=== PATIENT | female | born 1940 | race Caucasian/White ===

== ENCOUNTER 2024-02-26 23:00 | Observation (INO) ==
[2024-02-26 23:30] LABS: ABS Basophils 0.2 10^3/uL (0.0-0.1); ABS Eosinophils 0.2 10^3/uL (0.0-0.5); ABS Lymphocytes 1.8 10^3/uL (1.0-4.8); ABS Monocytes 0.3 10^3/uL (0.0-0.9); ABS Neutrophils 5.2 10^3/uL (1.5-7.6); ABS Nucleated RBC 0.01 10^3/ul; Eosinophil % 2.1 %; Hematocrit 39.2 % (35-45); Hemoglobin 13.6 g/dL (11.5-14.3); Lymphocyte % 23.2 %; Mean Corpuscular Hemoglobin 32.4 pg (27-33); Mean Corpuscular Hgb Conc 34.6 g/dL (31-36); Mean Corpuscular Volume 93.7 fL (80-97); Mean Platelet Volume 9.2 fL (7.5-11.2); Nucleated Red Blood Cells % 0.1 %/100WBC (0.0-0.8); Platelet Count 231 10^3/uL (150-450); Red Blood Count 4.19 10^6/uL (3.63-4.92); Red Cell Distribution Width 12.8 % (12-17); White Blood Count 7.7 10^3/uL (3.8-11.8)
[2024-02-26 23:42] LABS: INR 1.04 (0.85-1.14)
[2024-02-26 23:55] LABS: High Sens Troponin Baseline 61 pg/mL (<15)
[2024-02-27 00:48] LABS: ALT 26 U/L (7-52); Albumin 4.6 g/dL (3.5-5.7); Albumin/Globulin Ratio 1.8 (1-3); Alkaline Phosphatase 76 U/L (35-149); Anion Gap 6 mmol/L (2-16); Blood Urea Nitrogen 27 mg/dL (6-24); CO2 Carbon Dioxide 31 mmol/L (22-32); Calcium 10.1 mg/dL (8.6-10.3); Chloride 100 mmol/L (101-111); Creatinine, Serum 0.92 mg/dL (0.51-0.95); Globulin 2.5 g/dL (2-4); Glucose 132 mg/dL (70-100); Sodium 137 mmol/L (135-145); Total Bilirubin 0.8 mg/dL (0.2-1.0); Total Protein 7.1 g/dL (6.4-8.9); eGFR CKD-EPI 62.2 (>60)
[2024-02-27 02:10] LABS: Cholesterol 298 mg/dL; HDL Cholesterol 59.6 mg/dL; LDL Cholesterol 159 mg/dL; Triglycerides 396 mg/dL
[2024-02-27] MEDS: Heparin 5000 UNITS/ML 1 mL VIAL IV SCH (02:20)
[2024-02-27] MEDS: Heparin DRIP 25,000 UNITS BAG 25,000 UNITS/250 ML BAG IV SCH (02:23)
[2024-02-27 02:37] LABS: ABS Basophils 0.1 10^3/uL (0.0-0.1); ABS Eosinophils 0.1 10^3/uL (0.0-0.5); ABS Lymphocytes 1.7 10^3/uL (1.0-4.8); ABS Monocytes 0.2 10^3/uL (0.0-0.9); ABS Neutrophils 8.5 10^3/uL (1.5-7.6); Eosinophil % 0.6 %; Hematocrit 37.6 % (35-45); Hemoglobin 13.1 g/dL (11.5-14.3); Lymphocyte % 16.1 %; Mean Corpuscular Hemoglobin 32.4 pg (27-33); Mean Corpuscular Hgb Conc 34.7 g/dL (31-36); Mean Corpuscular Volume 93.2 fL (80-97); Mean Platelet Volume 9.4 fL (7.5-11.2); Platelet Count 226 10^3/uL (150-450); Red Blood Count 4.03 10^6/uL (3.63-4.92); Red Cell Distribution Width 12.9 % (12-17); White Blood Count 10.6 10^3/uL (3.8-11.8)
[2024-02-27 03:20] LABS: Potassium Redraw 4.3 mmol/L (3.5-5.0)
[2024-02-27 03:22] LABS: Creatinine, Serum 0.89 mg/dL (0.51-0.95); eGFR CKD-EPI 64.7 (>60)
[2024-02-27] MEDS: Calcium Carb (TUMS) 500 mg CHEW TAB PO ONE (05:57)
[2024-02-27 07:50] LABS: High Sensitivity Troponin 1 Hr 1174 pg/mL (<15)
[2024-02-27] MEDS: PRESERVISION AREDS PO SCH (08:04)
[2024-02-27] MEDS: Sulfur Hexaflouride MICROSPHR 25 MG VIAL IV PRN (08:24)
[2024-02-27 09:58] LABS: Anion Gap 11 mmol/L (2-16); Blood Urea Nitrogen 22 mg/dL (6-24); CO2 Carbon Dioxide 23 mmol/L (22-32); Calcium 9.4 mg/dL (8.6-10.3); Chloride 101 mmol/L (101-111); Creatinine, Serum 0.75 mg/dL (0.51-0.95); Glucose 100 mg/dL (70-100); Sodium 135 mmol/L (135-145); eGFR CKD-EPI 79.4 (>60)
[2024-02-27 10:22] LABS: Potassium, Whole Blood 4.1 mmol/L (3.4-4.5)
[2024-02-27] MEDS ORDERED: niCARdipine 0.1MG/ML IVPREMIX 20 MG/200 ML BAG IV ONE (12:34)
[2024-02-27] MEDS ORDERED: Lidocaine 1% MPF 5 ML VIAL ONE (12:34)
[2024-02-27] MEDS ORDERED: Heparin 2 UNITS/ML 1000 mls 3,000 ML IV ONE (12:34)
[2024-02-27] MEDS ORDERED: nitroGLYCERIN DRIP 25,000 MCG/250 ML BTL ONE ×2 (12:35→14:35)
[2024-02-27] MEDS ORDERED: Iohexol 350 (CONTRAST) 200 ML MDV IV ONE (12:35)
[2024-02-27] MEDS ORDERED: Heparin 1,000 UNIT/ML 10 ml (10,000 UNITS) CATHLAB/DIALYSIS ONE ×2 (12:44→14:03)
[2024-02-27] MEDS ORDERED: Midazolam 5 mg/5 ml VIAL 1 mg/ml 5 ml VIAL (5 mg) ONE (12:44)
[2024-02-27] MEDS ORDERED: fentaNYL 100 mcg/2 ml 50 MCG/ML VIAL ONE ×2 (12:44→13:58)
[2024-02-27] MEDS ORDERED: Heparin 2 UNITS/ML 1000 mls 1,000 ML IV ONE (12:52)
[2024-02-27] MEDS ORDERED: Ondansetron 4 mg VIAL 2 MG/ML 2 ml VIAL ONE (13:38)
[2024-02-27] MEDS ORDERED: Prochlorperazine 5 mg/ml 2 ml VIAL (10 mg) ONE (13:41)
[2024-02-27] MEDS ORDERED: Iohexol 350 (CONTRAST) 100 ML PAK IV ONE (14:04)
[2024-02-27] MEDS ORDERED: Eptifibatide IV (Load dose) 2 MG/ML 10 ml VIAL ONE (14:05)
[2024-02-27] MEDS ORDERED: fentaNYL 100 mcg/2 ml 50 MCG/ML VIAL IV PRN (14:55)
[2024-02-27] MEDS ORDERED: Ondansetron 4 mg VIAL 2 MG/ML 2 ml VIAL IV PRN (14:55)
[2024-02-27] MEDS: nitroGLYCERIN DRIP 25,000 MCG/250 ML BTL IV SCH (16:49)
[2024-02-27] MEDS: NS 0.9% 1000 ml BAG 1,000 ML IV SCH (16:49)
[2024-02-27] MEDS: Spironolactone/HCTZ 25-25 mg PO SCH (20:39)
[2024-02-28 04:13] LABS: ABS Basophils 0.1 10^3/uL (0.0-0.1); ABS Lymphocytes 1.3 10^3/uL (1.0-4.8); ABS Monocytes 0.6 10^3/uL (0.0-0.9); Eosinophil % 0.4 %; Hematocrit 32.8 % (35-45); Hemoglobin 11.5 g/dL (11.5-14.3); Lymphocyte % 14.7 %; Mean Corpuscular Hemoglobin 32.5 pg (27-33); Mean Corpuscular Hgb Conc 34.9 g/dL (31-36); Mean Corpuscular Volume 93.2 fL (80-97); Mean Platelet Volume 8.9 fL (7.5-11.2); Platelet Count 221 10^3/uL (150-450); Red Blood Count 3.52 10^6/uL (3.63-4.92); Red Cell Distribution Width 13.2 % (12-17); White Blood Count 9.1 10^3/uL (3.8-11.8)
[2024-02-28 05:28] LABS: Sodium 136 mmol/L (135-145)
[2024-02-28 05:29] LABS: Anion Gap 10 mmol/L (2-16); Blood Urea Nitrogen 17 mg/dL (6-24); CO2 Carbon Dioxide 23 mmol/L (22-32); Calcium 8.2 mg/dL (8.6-10.3); Chloride 103 mmol/L (101-111); Creatinine, Serum 0.77 mg/dL (0.51-0.95); Glucose 99 mg/dL (70-100); Magnesium 1.6 mg/dL (1.9-2.7)
[2024-02-28] MEDS: Magnesium Sulfate 2 gm BAG 2 GM/50 ML BAG IVPB ONE (06:08)
[2024-02-28 06:09] LABS: Potassium, Whole Blood 3.1 mmol/L (3.4-4.5); Sodium, Whole Blood 135 mmol/L (136-145)
[2024-02-28] MEDS: Potassium Chlor 20 meq TAB.ER PO ONE ×2 (08:28→12:07)
[2024-02-28] MEDS: Magnesium Sulfate IV 1GM/100ML 1 GM/100 ML BAG IV ONE (08:31)
[2024-02-28 13:52] VITALS: BP 105/69
== END 2024-02-28 13:30 | disposition home or self-care (01) ==
LOC: EDHOLD 23:00 → ED 23:00 → SUATTDRO 02-27 01:46 → MEDTELE 02-27 03:31 → ICU 02-27 15:54
PROVIDERS: ADMIT Hospitalist; ATTEND Internal Medicine